=== PATIENT | male | born 1995 | race African-American/Black ===

== ENCOUNTER 2020-07-26 22:02 | Emergency (ER) | payer MEDICAID ==
[~2020-07-26] VITALS: Ht 170.2 cm; Wt 55.0 kg
[2020-07-26 23:15] VITALS: BP 117/65
== END 2020-07-26 23:20 ==
LOC: ER 22:02
DX: Z02.89 Encounter for other administrative examinations (principal); J45.909 Unspecified asthma, uncomplicated; F99 Mental disorder, not otherwise specified; F12.10 Cannabis abuse, uncomplicated
CPT/HCPCS: 99283

== ENCOUNTER 2020-07-28 09:43 | Emergency (ER) | payer MEDICAID ==
[~2020-07-28] VITALS: Ht 167.6 cm; Wt 65.0 kg
[2020-07-28 13:06] VITALS: BP 112/76
[2020-07-29] MEDS ORDERED: ZYDS20 MT (11:12)
== END 2020-07-28 13:07 | disposition home or self-care (01) ==
LOC: ER 09:43
DX: F41.9 Anxiety disorder, unspecified (principal); F12.10 Cannabis abuse, uncomplicated; F17.200 Nicotine dependence, unspecified, uncomplicated; J45.909 Unspecified asthma, uncomplicated; Z59.0 Homelessness
CPT/HCPCS: 99281

== ENCOUNTER 2020-07-28 13:42 | Emergency (ER) | payer MEDICAID ==
[~2020-07-28] VITALS: Ht 167.6 cm; Wt 60.0 kg
[2020-07-28] MEDS ORDERED: LORAZEPAM 1MG TABLET PO ONE ×2 (14:30→22:15)
[2020-07-28 14:56] LABS: CLARITY URINE CLEAR (CLEAR); COLOR URINE YELLOW (YELLOW); KETONES URINE TRACE (NEGATIVE); LEUKOCYTE ESTERASE URINE NEGATIVE (NEGATIVE); NITRITE URINE NEGATIVE (NEGATIVE); OCCULT BLOOD URINE NEGATIVE (NEGATIVE); PROTEIN URINE NEGATIVE (NEGATIVE); SPECIFIC GRAVITY URINE 1.031 (1.005-1.030)
[2020-07-28 15:11] LABS: *AMPHETAMINES SCREEN URINE NEGATIVE (NEGATIVE); *BARBITURATES SCREEN URINE NEGATIVE (NEGATIVE); *BENZODIAZEPINES SCREEN URINE NEGATIVE (NEGATIVE); *COCAINE SCREEN URINE NEGATIVE (NEGATIVE); METHADONE URINE SCREEN NEGATIVE (NEGATIVE); OPIATES URINE SCREEN NEGATIVE (NEGATIVE)
[2020-07-28 15:12] LABS: CANNABINOID URINE SCREEN PRESUMTIVE POSITIVE (NEGATIVE); PHENCYCLIDINE URINE SCREEN NEGATIVE (NEGATIVE)
[2020-07-28 15:54] LABS: BASOPHILS % 1.1 % (0.0-2.0); EOSINOPHILS % 4.6 % (0.0-5.0); HEMATOCRIT. 38.1 % (42.0-52.0); HEMOGLOBIN. 13.6 g/dL (14.0-18.0); LYMPHOCYTES % 42.1 % (20.0-50.0); MEAN CORPUSCULAR HEMOGLOBIN 27.2 pg (28.0-32.0); MEAN CORPUSCULAR VOLUME 76.4 fL (80.0-94.0); MEAN PLATELET VOLUME 7.1 fl (7.4-10.4); MONOCYTES % 9.9 % (2.0-8.0); NEUTROPHILS % 42.3 % (40.0-76.0); PLATELET 296 x1000/uL (130-400); RED BLOOD CELL COUNT 4.99 mill/uL (4.7-6.1); RED CELL DISTRIBUTION WIDTH 15.7 % (11.6-14.6)
[2020-07-28 15:57] LABS: CHLORIDE 110 mEq/L (98-107)
[2020-07-28 16:02] LABS: ETHANOL BLOOD < 10 mg/dL
[2020-07-28] MEDS ORDERED: HALOPERIDOL 5MG TABLET PO ONE (22:15)
[2020-07-28] MEDS ORDERED: OLANZAPINE 10MG TABLET PO SCH (22:39)
[2020-07-29 09:30] VITALS: BP 110/69
[2020-07-29] MEDS ORDERED: ZYDS20 MT (11:12)
== END 2020-07-29 11:28 | disposition home or self-care (01) ==
LOC: ER 13:42
DX: T40.7X1A Poisoning by cannabis (derivatives), accidental (unintentional), initial encounter (principal); R45.850 Homicidal ideations; F20.9 Schizophrenia, unspecified; F17.200 Nicotine dependence, unspecified, uncomplicated; Z20.822 Contact with and (suspected) exposure to COVID-19; Y92.89 Other specified places as the place of occurrence of the external cause
CPT/HCPCS: 36415; 80053; 80305; 80307; 80320; 80329; 81003; 85025; 87426; 99285; C9803; J1630; U0003; U0005; G0480

== ENCOUNTER 2021-12-20 17:53 | Emergency (ER) | payer MEDICAID ==
[~2021-12-20] VITALS: Ht 170.2 cm; Wt 73.0 kg
[~2021-12-20 17:53] MED LIST: OLAN10TA3 MT; ZYDS20 MT
[2021-12-21] MEDS ORDERED: PREDNISONE 20MG TABLET PO STA (00:57)
[2021-12-21] MEDS ORDERED: IPRATROPIUM BROMIDE (0.02%) 0.5MG/2.5ML NEB HHN STA (00:57)
[2021-12-21] MEDS: ALBUTEROL (0.083%) 2.5MG/3ML NEB HHN SCH ×2 (02:05→02:58)
[2021-12-21 05:23] LABS: CHLORIDE 104 mEq/L (98-107)
[2021-12-21 05:29] LABS: ETHANOL BLOOD < 10 mg/dL
[2021-12-21 05:34] LABS: BASOPHILS % 0.4 % (0.0-2.0); EOSINOPHILS % 1.4 % (0.0-5.0); HEMATOCRIT. 42.4 % (42.0-52.0); HEMOGLOBIN. 14.7 g/dL (14.0-18.0); LYMPHOCYTES % 17.2 % (20.0-50.0); MEAN CORPUSCULAR HEMOGLOBIN 27.5 pg (28.0-32.0); MEAN CORPUSCULAR VOLUME 79.6 fL (80.0-94.0); MEAN PLATELET VOLUME 7.3 fl (7.4-10.4); MONOCYTES % 2.5 % (2.0-8.0); NEUTROPHILS % 78.5 % (40.0-76.0); PLATELET 287 x1000/uL (130-400); RED BLOOD CELL COUNT 5.33 mill/uL (4.7-6.1); RED CELL DISTRIBUTION WIDTH 14.2 % (11.6-14.6)
[2021-12-21 13:00] LABS: CLARITY URINE CLEAR (CLEAR); COLOR URINE YELLOW (YELLOW); KETONES URINE 1+ (NEGATIVE); LEUKOCYTE ESTERASE URINE NEGATIVE (NEGATIVE); NITRITE URINE NEGATIVE (NEGATIVE); OCCULT BLOOD URINE NEGATIVE (NEGATIVE); PH URINE 6.5 (4.5-8.0); PROTEIN URINE NEGATIVE (NEGATIVE); SPECIFIC GRAVITY URINE 1.019 (1.005-1.030)
[2021-12-21 14:17] LABS: *AMPHETAMINES SCREEN URINE NEGATIVE (NEGATIVE); *BARBITURATES SCREEN URINE NEGATIVE (NEGATIVE); *BENZODIAZEPINES SCREEN URINE NEGATIVE (NEGATIVE); *COCAINE SCREEN URINE NEGATIVE (NEGATIVE); METHADONE URINE SCREEN NEGATIVE (NEGATIVE); OPIATES URINE SCREEN NEGATIVE (NEGATIVE)
[2021-12-21 14:58] LABS: CANNABINOID URINE SCREEN PRESUMTIVE POSITIVE (NEGATIVE); PHENCYCLIDINE URINE SCREEN NEGATIVE (NEGATIVE)
[2021-12-21] MEDS: OLANZAPINE 10MG TABLET PO SCH (20:00)
[2021-12-21] MEDS ORDERED: DIPHENHYDRAMINE 25MG CAPSULE PO NR (20:30)
[2021-12-22] MEDS: OLANZAPINE 10MG TABLET PO SCH ×2 (11:05→17:00)
[2021-12-23] MEDS: OLANZAPINE 10MG TABLET PO SCH (09:00)
[2021-12-23 10:05] VITALS: BP 115/80
== END 2021-12-23 12:40 | disposition home or self-care (01) ==
LOC: ER 17:53
DX: F20.9 Schizophrenia, unspecified (principal); F31.9 Bipolar disorder, unspecified; R45.851 Suicidal ideations; J45.901 Unspecified asthma with (acute) exacerbation; F17.210 Nicotine dependence, cigarettes, uncomplicated
CPT/HCPCS: 36415; 80053; 80305; 80320; 81003; 85025; 87426; 94640; 99285; C9803; J7512; Q0163; Z7610; G0480